=== PATIENT | female | born 1980 | race Two or more races ===

== ENCOUNTER 2019-12-07 11:51 | Emergency (ER) | payer SELFPAY ==
--- NOTE | 2019-12-07 12:50 | ER Document Report ---
HPI - HPI Patient complains to provider of: dental pain, ear pain Time Seen by Provider: 12/07/19 12:44 Context: 39-year-old female with no previous medical problems presents to the emergency room complaining of worsening of left lower posterior dental pain for the past 2 weeks. States pain has gotten worse over the past 2 to 3 days and now radiates into her left ear. She denies any fevers. Denies any trauma or injury. No recent travel. States she is been taking Tylenol Motrin without relief. Last dose of Tylenol 9 AM today. States she status post be taking Motrin secondary to gastric bypass. States she attempted to get appointment with a dentist but cannot get one for another week. States she is eating and drinking without difficulty. Denies any chance of . Associated Symptoms: None Exacerbated by: Other - Eating Relieved by: Denies Similar symptoms previously: No Recently seen / treated by doctor: No - ROS Systems Reviewed and Negative: Yes All other systems reviewed and negative - CONSTITUTIONAL Constitutional: DENIES: Fever - EENT EENT: REPORTS: Ear Pain. DENIES: Sore Throat Notes: Dental pain - NEURO Neurology: DENIES: Headache, Weakness - GASTROINTESTINAL Gastrointestinal: DENIES: Nausea - REPRODUCTIVE Reproductive: DENIES: : - DERM Skin Color: Normal Skin Problems: None Past Medical History - General Information source: Patient - Social History Smoking Status: Never Smoker Frequency of alcohol use: None Drug Abuse: None Family History: Reviewed & Not Pertinent Vertical Provider Document - CONSTITUTIONAL Agree With Documented VS: Yes Exam Limitations: No Limitations General Appearance: Mild Distress - INFECTION CONTROL TRAVEL OUTSIDE OF THE [place] IN LAST 30 DAYS: No - HEENT HEENT: Atraumatic, Normocephalic. negative: Pharyngeal Exudate, Pharyngeal Erythema, Tympanic Membrane Red, Tympanic Membrane Bulging - Left tympanic membrane is dull and retracted with clear fluid noted behind the tympanic membrane. Left outer ear canal without erythema or swelling. Right tympanic membrane without erythema or swelling. Right outer ear canal without erythema or swelling. Notes: Left lower posterior wisdom tooth is tender to palpation with a nonfluctuant ab scess palpated on the gum side. There is no active discharge or draining noted. - NECK Neck: Normal Inspection, Supple. negative: Lymphadenopathy-Left, Lymphad enopathy-Right - RESPIRATORY Respiratory: Breath Sounds Normal, No Respiratory Distress - CARDIOVASCULAR Cardiovascular: Regular Rate, Regular Rhythm, No Murmur - NEURO Level of Consciousness: Awake, Alert, Appropriate Motor/Sensory: No Motor Deficit, No Sensory Deficit - DERM Integumentary: Warm, Dry, No Rash Course - Re-evaluation Re-evalutation: 12/07/19 12:50 Reviewed diagnosis with patient. Discussed with patient need to follow-up with primary care physician for elevated blood pressure. She is asymptomatic with her elevated blood pressure. She denies any chest pain, shortness of breath, no difficulty breathing. No history of hypertension. Outpatient follow-up with primary care physician on-call physician was provided. Counseled to use nasal spray as prescribed. Antibiotics as prescribed. Continue with Tylenol as needed for pain. Outpatient follow-up with a dentist as discussed. Patient will be provided with the [facility] information. Patient was given strict return to the emergency room guidelines. Return for any new or worsening symptoms. All questions were answered. Patient verbalized understan ding and agrees with plan of care. 12/07/19 12:57 Discharge - Discharge Clinical Impression: Dysfunction of left eustachian tube, Pain, dental, Dental abscess, Elevated blood pressure reading without diagnosis of hypertension Condition: Stable Disposition: HOME, SELF-CARE Instructions: Dental Infection or Abscess ([facility]), High Blood Pressure ([facility]), Penicillin V K ([facility]), Toothache ([facility]) Additional Instructions: You have fluid in your left ear which is treated with a nasal spray. Use the nasal spray as prescribed. Take the antibiotics for your dental pain and dental abscess. Outpatient follow-up with a dentist as discussed. Patient was given strict return to the emergency room guidelines. Return for any new or worsening symptoms. All questions were answered. Patient verbalized understanding and agrees with plan of care. Prescriptions: Fluticasone Propionate [Flonase Nasal Leonard 50 Mcg/Leonard 16 gm] 2 sprays NASL DAILY #1 bottle Penicillin V Potassium [Penicillin Vk 500 mg Tablet] 500 mg PO QID #40 tablet Forms: Elevated Blood Pressure Referrals: [facility] [Provider Group] - Follow up as needed SRAVANI ESCOBAR MD [ACTIVE STAFF] - Follow up as needed
[2019-12-07 12:58] VITALS: BP 158/100
== END 2019-12-07 12:52 | disposition home or self-care (01) ==
LOC: ER 11:51
DX: K04.7 Periapical abscess without sinus (principal); H69.82 Other specified disorders of Eustachian tube, left ear; R03.0 Elevated blood-pressure reading, without diagnosis of hypertension; H92.02 Otalgia, left ear; Z98.84 Bariatric surgery status
CPT/HCPCS: 99283